=== PATIENT | female | born 1980 | race Asian ===

== ENCOUNTER 2017-06-21 05:31 | Day surgery (SDC) | payer OTHER ==
[2017-06-15 13:36] VITALS: BMI 32.8
[2017-06-21] MEDS ORDERED: PROPOFOL 20 ML ONE (13:11)
[2017-06-21] MEDS ORDERED: MIDAZOLAM HCL 2 MG/2 ML SINGLE DOSE VIAL ONE (13:11)
[2017-06-21] MEDS ORDERED: DEXAMETHASONE SOD PHOSPHATE 4 MG/1 ML VIAL ONE (13:16)
--- NOTE | 2017-06-21 13:20 | HP ---
History & Physical Update - History History: No Change - Physical Physical: No Change - Assessment Assessment: No Change - Plan Plan: No Change
[2017-06-21] MEDS ORDERED: IBUPROFEN 400 MG TABLET (FP) PO PRN (13:21)
[2017-06-21] MEDS ORDERED: ACETAMINOPHEN 325 MG TABLET (FP) PO PRN (13:21)
--- NOTE | 2017-06-21 13:21 | OP ---
Operative Note - Note: Operative Date: 06/21/17 Pre-Operative Diagnosis: Endometrial polyp Operation: Hysteroscopic Myomectomy. Suction DC Post-Operative Diagnosis: Same as Pre-op Surgeon: Naya Mendez Anesthesia: General Estimated Blood Loss (mls): 20 Operative Report Dictated: Yes
[2017-06-21] MEDS ORDERED: ceFAZolin SODIUM 1 GM VIAL ONE (13:25)
[2017-06-21] MEDS ORDERED: ceFAZolin SODIUM 1 GM VIAL IVPB ONE (13:25)
[2017-06-21] MEDS ORDERED: KETOROLAC TROMETHAMINE 30 MG/1 ML VIAL ONE (13:36)
[2017-06-21] MEDS ORDERED: LACTATED RINGERS SOLUTION 1,000 ML IV SCH (14:45)
[2017-06-21] MEDS ORDERED: PROMETHAZINE HCL 25 MG/1 ML VIAL IVPUSH PRN (14:45)
[2017-06-21] MEDS ORDERED: ONDANSETRON 4 MG/2 ML VIAL IVPUSH PRN (14:45)
[2017-06-21] MEDS ORDERED: ACETAMINOPHEN 325 MG TABLET (FP) ONE (16:29)
[2017-06-21 17:49] VITALS: BP 103/65; PULSE 76
[2017-06-21 22:29] VITALS: TEMP 98.4
--- NOTE | 2017-06-23 16:44 | PATH ---
Surgical Pathology Report Patient Name: ADE CUMMINGS [facility]. Rec. #: [id number] /Age/Gender: 1980 (Age: 36) / F Account: [id number] Location: [facility] SURGICAL Taken: 06/21/2017 Received: 06/22/2017 Reported: 06/23/2017 Physicians: Naya Mendez M.D. Specimen(s) Received FIBROIDS Clinical History Endometrial polyps Final Diagnosis UTERUS, FIBROIDS, HYSTEROSCOPIC MYOMECTOMY: FRAGMENTS OF SUBMUCOSAL LEIOMYOMA. PROLIFERATIVE ENDOMETRIUM. Electronically Signed Kristi Carballo M.D. Gross Description Received in formalin labeled "fibroids," is a 1 g, 2.3 x 1.7 x 0.3 cm aggregate of kaur, irregular, firm to rubbery portions of tissue, consistent with morcellated fibroids. The formalin is filtered and the specimen is entirely submitted in one cassette. /06/22/2017 saudi06/22/2017
== END 2017-06-21 17:49 | disposition home or self-care (01) ==
LOC: JASU-SURG 05:31
PROVIDERS: ATTEND Obstetrics & Gynecology
PROC: 0UB98ZX Excision of Uterus, Via Natural or Artificial Opening Endoscopic, Diagnostic (ICD-10-PCS; principal; 2017-06-21 13:30)
PROC: 0UDB8ZX Extraction of Endometrium, Via Natural or Artificial Opening Endoscopic, Diagnostic (ICD-10-PCS; 2017-06-21 13:30)
DX: N84.0 Polyp of corpus uteri (principal)
CPT/HCPCS: 84703; 88305-TC; 94760

== ENCOUNTER 2020-10-11 13:26 | Inpatient (IN) | payer OTHER ==
[2020-10-11 17:51] LABS: BASO % 0.3 % (0-2.0); EOS % 0.4 % (0-4.5); HEMATOCRIT 35.3 % (32.4-45.2); HEMOGLOBIN 11.6 GM/dL (10.7-15.3); LYMPH % 12.8 % (8-40); MCH 29.1 pg (25.7-33.7); MCHC 32.9 g/dl (32.0-36.0); MEAN CELL VOLUME 88.3 fl (80-96); MONO % 6.3 % (3.8-10.2); NEUT % 80.2 % (42.8-82.8); PLATELET COUNT 216 K/MM3 (134-434); RDW 16.1 % (11.6-15.6); WHITE BLOOD COUNT 8.9 K/mm3 (4.0-10.0)
[2020-10-11 18:04] LABS: INR 1.04 (0.83-1.09); PROTHROMBIN TIME (PATIENT) 12.8 SEC (9.7-13.0)
[2020-10-11 18:07] LABS: ACTIVATED PTT 26.9 SECONDS (25.2-36.5)
[2020-10-11 18:14] LABS: ALBUMIN 2.5 g/dl (3.4-5.0)
[2020-10-11 18:15] LABS: URIC ACID 6.8 mg/dL (2.6-7.2)
[2020-10-11 18:17] LABS: BILIRUBIN,TOTAL 0.6 mg/dL (0.2-1); CREATININE 0.7 mg/dL (0.55-1.3); TOT PROT 5.7 g/dl (6.4-8.2)
[2020-10-11 18:37] LABS: EPI CELLS 9 /uL (0-25.1); HYALINE CASTS 2 /uL (0-3.1); URINE APPEARANCE CLEAR; URINE BACTERIA 2516 /uL (0-1359); URINE BILIRUBIN NEGATIVE (NEGATIVE); URINE COLOR YELLOW; URINE GLUCOSE (UA) NEGATIVE (NEGATIVE); URINE KETONE TRACE (NEGATIVE); URINE LEUK ESTERASE 2+ (NEGATIVE); URINE NITRITE NEGATIVE (NEGATIVE); URINE PROTEIN NEGATIVE (NEGATIVE); URINE RBC 34 /uL (0-23.9); URINE UROBILINOGEN 0.2 mg/dL (0.2-1.0); URINE WBC 150 /uL (0-25.8)
[2020-10-11 19:46] LABS: YEAST NEGATIVE (NEGATIVE)
[2020-10-11] MEDS ORDERED: CITRIC ACID/SODIUM CITRATE 30 ML UNIT-DOSE CUP PO ONE (20:30)
[2020-10-11] MEDS ORDERED: morphine SULFATE/PF 0.5 MG/ML (2cc Syringe - QUVA) EP ONE (21:25)
[2020-10-11] MEDS ORDERED: ONDANSETRON 4 MG/2 ML VIAL IVPUSH PRN (21:25)
[2020-10-11 22:05] VITALS: BMI 35.6
[2020-10-11] MEDS ORDERED: morphine SULFATE/PF 0.5 MG/ML (2cc Syringe - QUVA) ONE (22:37)
[2020-10-11] MEDS ORDERED: ceFAZolin SODIUM 1 GM VIAL ONE (22:38)
[2020-10-11] MEDS ORDERED: ELECTROLYTE-148 SOLN 1,000 ML IV SCH (23:00)
[2020-10-11] MEDS ORDERED: OXYTOCIN 10 UNITS/ML VIAL ONE (23:31)
[2020-10-11] MEDS ORDERED: KETOROLAC TROMETHAMINE 30 MG/1 ML VIAL ONE (23:37)
[2020-10-11] MEDS ORDERED: ONDANSETRON 4 MG/2 ML VIAL ONE (23:37)
[2020-10-11] MEDS ORDERED: MIDAZOLAM HCL 2 MG/2 ML SINGLE DOSE VIAL ONE (23:48)
[2020-10-11] MEDS ORDERED: MEPERIDINE HCL 50 MG/ML VIAL ONE (23:53)
[2020-10-12] MEDS ORDERED: METHYLERGONOVINE MALEATE 0.2 MG/1 ML AMP IM PRN (00:35)
[2020-10-12] MEDS ORDERED: IBUPROFEN 800 MG/8 ML IJ IVPB PRN (00:35)
[2020-10-12] MEDS ORDERED: WITCH HAZEL 50% (TUCKS) 40 PAD/JAR PAD TP PRN (00:35)
[2020-10-12] MEDS ORDERED: BENZOCAINE 28 GM HEMORRHOIDAL OINTMENT TP PRN (00:35)
[2020-10-12] MEDS ORDERED: BENZOCAINE 20% 57 GM BOTTLE TP PRN (00:35)
[2020-10-12] MEDS ORDERED: OXYTOCIN 20 UNITS in 0.9% NS 20 UNIT/1,000 ML INFUS.BAG IV ONE (00:44)
[2020-10-12] MEDS: OXYTOCIN 20 UNITS in 0.9% NS 20 UNIT/1,000 ML INFUS.BAG IV SCH ×2 (00:45→18:34)
[2020-10-12 01:59] LABS: CORD BASE EXCESS -2.6 mmol/L (0-2); CORD HCO3 24.5 mmHg (20-29); CORD PCO2 51.5 mmHg (30-78); CORD pH 7.296 (7.14-7.44)
[2020-10-12 02:01] LABS: CORD PCO2 55.8 mmHg (30-78); CORD pH 7.251 (7.14-7.44)
[2020-10-12] MEDS: PRENATAL VITAMINS W/ FOLIC ACID TABLET (FP) PO SCH (11:03)
[2020-10-12] MEDS: ENOXAPARIN NA (PORCINE) 40 MG/0.4 ML DISP.SYRIN SQ SCH (11:06)
[2020-10-12] MEDS: SIMETHICONE 80 MG TAB.CHEW (FP) PO PRN (22:17)
[2020-10-13] MEDS ORDERED: BISACODYL 10 MG SUPP.RECT RC PRN (00:36)
[2020-10-13] MEDS: SIMETHICONE 80 MG TAB.CHEW (FP) PO PRN ×4 (04:31→20:22)
[2020-10-13] MEDS: IBUPROFEN 600 MG TABLET (FP) PO PRN ×3 (04:31→17:46)
[2020-10-13 08:15] LABS: BASO % 0.3 % (0-2.0); EOS % 1.4 % (0-4.5); HEMATOCRIT 32.2 % (32.4-45.2); HEMOGLOBIN 10.8 GM/dL (10.7-15.3); LYMPH % 12.1 % (8-40); MCH 29.4 pg (25.7-33.7); MCHC 33.4 g/dl (32.0-36.0); MEAN CELL VOLUME 87.8 fl (80-96); MEAN PLT VOLUME 8.9 fl (7.5-11.1); MONO % 8.1 % (3.8-10.2); NEUT % 78.1 % (42.8-82.8); PLATELET COUNT 227 K/MM3 (134-434); RBC 3.67 M/mm3 (3.60-5.2); RDW 16.3 % (11.6-15.6); WHITE BLOOD COUNT 10.5 K/mm3 (4.0-10.0)
[2020-10-13] MEDS: oxyCODONE HCL 5 MG TABLET PO PRN ×2 (09:35→17:47)
[2020-10-13] MEDS: PRENATAL VITAMINS W/ FOLIC ACID TABLET (FP) PO SCH (09:37)
[2020-10-13] MEDS: ENOXAPARIN NA (PORCINE) 40 MG/0.4 ML DISP.SYRIN SQ SCH (09:37)
[2020-10-14] MEDS: oxyCODONE HCL 5 MG TABLET PO PRN ×3 (06:17→22:47)
[2020-10-14] MEDS: SIMETHICONE 80 MG TAB.CHEW (FP) PO PRN ×3 (06:18→22:48)
[2020-10-14] MEDS: ENOXAPARIN NA (PORCINE) 40 MG/0.4 ML DISP.SYRIN SQ SCH (09:36)
[2020-10-14] MEDS: PRENATAL VITAMINS W/ FOLIC ACID TABLET (FP) PO SCH (09:36)
[2020-10-15 08:54] LABS: BASO % 0.5 % (0-2.0); EOS % 1.9 % (0-4.5); HEMATOCRIT 32.6 % (32.4-45.2); HEMOGLOBIN 11.2 GM/dL (10.7-15.3); MCH 29.8 pg (25.7-33.7); MCHC 34.2 g/dl (32.0-36.0); MEAN CELL VOLUME 87.2 fl (80-96); MEAN PLT VOLUME 8.3 fl (7.5-11.1); MONO % 5.2 % (3.8-10.2); NEUT % 78.4 % (42.8-82.8); PLATELET COUNT 279 K/MM3 (134-434); RBC 3.74 M/mm3 (3.60-5.2); WHITE BLOOD COUNT 7.7 K/mm3 (4.0-10.0)
[2020-10-15 09:05] VITALS: BP 137/88; PULSE 98; TEMP 98.2
[2020-10-15] MEDS: ENOXAPARIN NA (PORCINE) 40 MG/0.4 ML DISP.SYRIN SQ SCH (10:34)
[2020-10-15] MEDS: SIMETHICONE 80 MG TAB.CHEW (FP) PO PRN (10:34)
[2020-10-15] MEDS: PRENATAL VITAMINS W/ FOLIC ACID TABLET (FP) PO SCH (10:34)
== END 2020-10-15 14:30 | disposition home or self-care (01) | DRG 783 ==
LOC: JDEL 13:26 → JLDR 19:47 → J3W 10-12 02:45
PROVIDERS: ADMIT Obstetrics & Gynecology; ATTEND Obstetrics & Gynecology
PROC: 10D00Z1 Extraction of Products of Conception, Low, Open Approach (ICD-10-PCS; principal; 2020-10-12)
PROC: 0UB70ZZ Excision of Bilateral Fallopian Tubes, Open Approach (ICD-10-PCS; 2020-10-12)
DX: O34.219 Maternal care for unspecified type scar from previous cesarean delivery (principal); O11.3 Pre-existing hypertension with pre-eclampsia, third trimester; O99.214 Obesity complicating childbirth; E66.9 Obesity, unspecified; Z30.2 Encounter for sterilization; Z37.0 Single live birth; Z3A.36 36 weeks gestation of pregnancy; Z85.3 Personal history of malignant neoplasm of breast; O09.523 Supervision of elderly multigravida, third trimester
CPT/HCPCS: 36415; 36600; 80053; 81003; 82803; 84550; 85025; 85384; 85610; 85730; 86780; 86850; 86900; 86901; 87086; 88302-TC; 88307-TC; C9803; J2175; U0003